=== PATIENT | female | born 2000 | race Two or more races ===

== ENCOUNTER 2024-12-17 15:17 | Emergency (ER) | payer MEDICAID ==
[~2024-12-17] VITALS: Ht 165.1 cm; Wt 97.9 kg
[2024-12-17 15:19] VITALS: BP 168/91; PULSE 106; TEMP 98.7; O2SAT 98
[2024-12-17 15:26] VITALS: RESP 16
== END 2024-12-17 16:35 | disposition home or self-care (01) ==
LOC: ER 15:18
DX: R04.2 Hemoptysis (principal); F17.210 Nicotine dependence, cigarettes, uncomplicated
CPT/HCPCS: 71045; 99283